=== PATIENT | female | born 1960 | race Caucasian/White ===

== ENCOUNTER 2024-11-08 07:40 | Day surgery (SDC) | payer BC ==
[2024-11-08] MEDS ORDERED: Lactated Ringers 1,000 ML IV ONE ×2 (07:41→10:15)
[2024-11-08] MEDS ORDERED: Propofol 200 MG/20 ML SDV ONE ×2 (07:48→09:45)
[2024-11-08] MEDS ORDERED: Midazolam 1 MG/ML 2 ML SDV ONE (07:52)
[2024-11-08] MEDS ORDERED: dexmedeTOMIDine HCl 200 MCG/2 ML SDV ONE (07:53)
[2024-11-08] MEDS ORDERED: Dexamethasone 4 MG/ML 5 ML MDV ONE (08:06)
[2024-11-08] MEDS ORDERED: ceFAZolin 2 GM Vial ONE (08:06)
[2024-11-08] MEDS ORDERED: Ondansetron 4 MG/2 ML SDV ONE (08:06)
[2024-11-08] MEDS ORDERED: Ropivacaine 0.5% 5 MG/ML 30 ML SDV ONE (08:55)
[2024-11-08] MEDS: oxyCODONE ER 10 MG TAB.ER PO ONE (09:30)
[2024-11-08] MEDS: Acetaminophen 325 MG Tab PO ONE (09:30)
[2024-11-08] MEDS: Pregabalin 25 MG Cap PO ONE (09:30)
[2024-11-08] MEDS ORDERED: fentaNYL 100 MCG/2 ML SDV ONE (09:55)
[2024-11-08] MEDS ORDERED: ePHEDrine 50 MG/ML SDV ONE (10:02)
[2024-11-08] MEDS ORDERED: Phenylephrine 1% 10 MG/ML SDV ONE (10:13)
[2024-11-08] MEDS: Morphine 8 MG, EPINEPHrine 0.3 MG, Cefuroxime 750 MG, Ketorolac 30 MG, Sodium Chloride ... PRN (10:46)
[2024-11-08] MEDS: VANCOmycin 1 GM SDV ONE (10:52)
[2024-11-08] MEDS: Tranexamic Acid 1,000 MG/10 ML Vial ONE (10:52)
[2024-11-08] MEDS ORDERED: HYDROmorphone 0.5 MG/0.5 ML Syringe IVPUSH PRN (11:40)
[2024-11-08] MEDS ORDERED: fentaNYL 100 MCG/2 ML SDV IVPUSH PRN (11:40)
[2024-11-08] MEDS ORDERED: Ondansetron 4 MG/2 ML SDV IVPUSH PRN (11:40)
[2024-11-08] MEDS: oxyCODONE 5 MG Tab PO PRN (15:11)
== END 2024-11-08 15:55 | disposition home or self-care (01) ==
LOC: JD.SDS 07:40
PROVIDERS: ATTEND Orthopaedic Surgery
DX: M17.11 Unilateral primary osteoarthritis, right knee (principal); E78.00 Pure hypercholesterolemia, unspecified; F41.1 Generalized anxiety disorder; F33.1 Major depressive disorder, recurrent, moderate; Z79.899 Other long term (current) drug therapy; Z88.0 Allergy status to penicillin
CPT/HCPCS: 0055T; 27447; 73560; 97116; 97161; 97530; A9270; C1713; C1776; J0171; J0690; J0697; J1100; J1885; J2250; J2272; J2371; J2405; J2704; J2795; J3010; J7120; 01402; 64447; J3490